=== PATIENT | male | born 1975 | race Caucasian/White ===

== ENCOUNTER → 2018-02-15 | Outpatient (REF) ==
[~2018-02-15] MED LIST: [UNRECOGNIZED DRUG - REMARK]
== END ==
LOC: AUD 08:45
PROVIDERS: ATTEND Internal Medicine
DX: Z01.10 Encounter for examination of ears and hearing without abnormal findings (principal)
CPT/HCPCS: 92552

== ENCOUNTER 2018-12-14 11:30 | Emergency (ER) | payer BC ==
--- NOTE | 2018-12-14 11:31 | ER Report ---
History and Physical Time Seen By MD: 11:31 HPI/ROS CHIEF COMPLAINT: Allergic reaction HISTORY OF PRESENT ILLNESS: 43-year-old male patient presents to emergency room with complaint of allergic reaction. Patient states that he had received a cortisone injection in his right shoulder earlier this morning. He states that he was going to do some work at his second job. 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 He initially planned on taking some Benadryl for this. However he felt like his throat started to tighten up. At that time he decided to come to the emergency room for evaluation. Patient states he feels like his throat is swelling, although he does not have any shortness of breath, cough. Patient denies any nausea, vomiting or diarrhea. Patient states he's never had a reaction like this previously and states this is his first cortisone injection. REVIEW OF SYSTEMS: Respiratory: No cough, no dyspnea. Cardiovascular: No chest pain, no palpitations. Gastrointestinal: No vomiting, no abdominal pain. Musculoskeletal: No back pain. Allergies: Coded Allergies: triamcinolone (Verified Allergy, Mild, 12/14/18) Home Meds Active Scripts Prednisone (PREDNISONE) 20 Mg Tablet, 40 MG PO DAILY, #10 TAB Prov:AGUILA MORRIS LORRAINE 12/14/18 Reported Medications [no routine meds.] No Conflict Check 02/03/09 Past Medical/Surgical History Patient denies any pertinent medical or surgical history. Reviewed Nurses Notes: Yes Hx Smoking: No Constitutional Vital Sign - Last 24 Hours 12/14/18 12/14/18 11:30 11:32 Temp 98.1 Pulse 130 Resp 20 Pulse Ox 91 O2 Delivery Room Air O2 Flow Rate 2.0 Physical Exam General Appearance: The patient is alert, has no immediate need for airway protection and no current signs of toxicity. ENT: Mucous membranes are moist, there is no obvious swelling noted at the posterior pharynx. Respiratory: Chest is non tender, lungs are clear to auscultation. No stridor or wheezing noted. Cardiac: regular rate and rhythm Gastrointestinal: Abdomen is soft and non tender, no masses, bowel sounds normal. Musculoskeletal: Neck: Neck is supple and non tender. Extremities have full range of motion and are non tender. Skin: Patient has hives that are located on chest, back, redness to the chest and shoulders. DIFFERENTIAL DIAGNOSIS: After history and physical exam differential diagnosis was considered for allergic reaction. Medical Decision Making ED Course/Re-evaluation ED Course Patient was admitted to an exam room, history and physical were obtained. Differential diagnoses were considered. On examination lungs are clear, heart rate is regular, abdomen is soft and nontender. An IV was started, patient received a liter of normal saline, 125 mg Solu-Medrol, 20 mg Pepcid and 25 mg of Benadryl. On initial reevaluation, 7 minutes after getting the medication, patient states that he feels slightly less itchy. We continued to monitor him for approximately one hour. I did reevaluate him after one hour. At that time the hives have completely resolved. Redness was gone from his chest. Patient states he feels better at this time. He been wearing 1 L of oxygen which had him at 98%, at that time I took the oxygen off. I did type of the discharge instructions and re-evaluate the patient for that. He is satting 93% and still felt good. We will go ahead and discharge him home at this time. I did discuss with him my concerns that with him receiving and intra-articular injection that he may have the triamcinolone, and really I believe it is likely an additive, in his system for a long period time which has caused this allergic reaction. We will do a 5 day burst, with the hope that will clear out the allergen during that time. However if he has recurrence of the hives and itching we will have to put him on a longer taper of steroids. Patient and his verbalized understanding and agreement with plan. Decision to Disposition Date: Dec 14, 2018 Decision to Disposition Time: 12:33 Depart Departure Latest Vital Signs Vital Signs Date Time Temp Pulse Resp B/P (MAP) Pulse Ox O2 Delivery O2 Flow Rate FiO2 12/14/18 11:32 98.1 130 20 91 Room Air 12/14/18 11:30 2.0 Impression: Primary Impression: Allergic reaction caused by a drug Condition: Improved Disposition: HOME OR SELF-CARE Referrals: ISI GUADARRAMA MD (PCP) New Scripts Prednisone (PREDNISONE) 20 Mg Tablet 40 MG PO DAILY, #10 TAB Prov: AGUILA MORRIS [employer] 12/14/18 Patient Instructions: General Allergic Reaction (ED) Additional Instructions: Increase fluid intake. Get plenty of rest. Take the medication as directed. I believe that this was caused by an additive of the Kenalog, I would recommend not taking that any more. You may take Benadryl as needed for any itching. Return to the ER if condition worsens. Follow up with your primary care provider in the next week. I do worry that this may come back after finishing the steroids, watch for any recurrence of the hives or itching as we may need to be on the steroids longer. Problem Qualifiers Primary Impression: Allergic reaction caused by a drug Encounter type: initial encounter Qualified Codes: T78.40XA - Allergy, unspecified, initial encounter AGUILA MORRIS Dec 14, 2018 11:31
[2018-12-14] MEDS ORDERED: NS(*) 0.9% 1000 ML BAG 1,000 ML IV ONE (11:35)
[2018-12-14] MEDS ORDERED: diphenhydrAMINE 50 MG/ML VIAL IVP ONE (11:35)
[2018-12-14] MEDS ORDERED: FAMOTIDINE(*) 20MG/50ML PREMIX 50 ML IVPB ONE (11:35)
[2018-12-14] MEDS ORDERED: methylPREDNIS SUCC 125 MG/2ML IVP ONE (11:35)
[2018-12-14] MEDS ORDERED: PRED20TA6 PO (12:32)
== END 2018-12-14 12:47 | disposition home or self-care (01) ==
LOC: ER 11:46
DX: T50.995A Adverse effect of other drugs, medicaments and biological substances, initial encounter (principal)
CPT/HCPCS: 96361; 96365; 96375; 99284; J1200; J2930; J3490; J7030